=== PATIENT | female | born 1950 | race Caucasian/White ===

== ENCOUNTER → 2024-02-18 | Outpatient (CLI) | payer MEDICARE, BC ==
[2024-02-18 14:54] VITALS: BP 134/87; PULSE 76; RESP 16; TEMP 98.3
--- NOTE | 2024-02-18 16:30 | P.SLEEP ---
History of Present Illness H&P Date: 02/18/24 This is a 73-year-old female patient was referred to me with problems with chronic insomnia. The patient has had insomnia during her teenager years as her parents went to through a divorce. Subsequently, her condition improved and later on in her mid 40s, as the patient was taking care of her mother with history of melanoma, the patient started developing insomnia and advanced apnea is ongoing for the past 21 years. The patient is unable to sleep more than 3 hours. She goes to bed at around 11 PM and she averages around 2-1/2 to 3 hours at best and she gets out of bed at around 5:00 in the morning. She feels fatigued and tired during the day. Nevertheless, her functionality has been pr eserved. She has undergone a polysomnography many years back through [facility] facility. The patient was given a diagnosis of obstructive sleep apnea. She was given a CPAP machine which she was unable to tolerate and she ended up putting the treatment. She is still snoring. She denies waking up choking or gasping for air. No grinding of the teeth. No restlessness in lower extremitie s. No nighttime chest pain or shortness of breath or palpitations. She has chronic headache due to rheumatoid arthritis. She was morbidly obese and she has undergone 2 separate bariatric surgeries including gastric bypass and she has lost considerable mount of weight and current weight is down to 130. The patient has also history of pernicious anemia. No reports history of iron deficiency. No restlessness in her lower extremities bilaterally. Based on her ongoing insomnia, the patient was placed on a combination of treatment including Seroquel 100 mg at bedtime, Ambien 5 mg at bedtime and doxepin 50 mg at bedtime. Those medication combination has helped, nevertheless, the improvement was not considerable. She is also taking melatonin 3 mg tablet a total of 9 mg at bedtime. In regards to her pain, she has been taking [place] for pain control at a dose of 10/325. No history of head trauma. Notes of substance abuse. Notes of alcoholism. She is reporting a history of A-fib that occurred on 1 occasion and during the same time the patient was found to have some ROBOTIC TECHNICIAN bleed and based on that the patient is not on any anticoagulants. The patient did not require any neurosurgical intervention. No recurrent stroke. No psychiatric history of anxiety or depression. No bipolar disorder. No PTSD. She is currently living alone and her current [place] score is 4. Review of Systems Constitutional: Reports fatigue, Reports weight loss Eyes: denies as per HPI, denies blurred vision, denies bulging eye, denies dec reased vision, denies diplopia, denies discharge, denies dry eye, denies irritation, denies itching, denies pain, denies photophobia, denies loss of peripheral vision, denies loss of vision, denies tunnel vision/blind spots Ears: deny: decreased hearing, ear discharge, earache, tinnitus Ears, nose, mouth and throat: Reports as per HPI Cardiovascular: Reports as per HPI Respiratory: Reports snoring Gastrointestinal: Reports as per HPI Genitourinary: Reports as per HPI Menstruation: Reports as per HPI Musculoskeletal: Reports limitation of motion, Reports low back pain, Reports morning stiffness, Reports neck pain, Reports neck stiffness Musculoskeletal: absent: ankle pain, ankle stiffness, ankle swelling, as per HPI, elbow pain, elbow stiffness, elbow swelling, foot pain, foot stiffness, foot swelling, hand pain, hand stiffness, hand swelling, hip pain, hip stiffness, hip swelling, knee pain, knee stiffness, knee swelling, shoulder pain, shoulder stiffness, shoulder swelling, wrist pain, wrist stiffness, wrist swelling Integumentary: Reports as per HPI Neurological: Reports as per HPI Psychiatric: Reports as per HPI, Reports sleep disturbances Endocrine: Reports as per HPI, Reports fatigue Hematologic/Lymphatic: Reports as per HPI Allergic/Immunologic: Reports as per HPI Past Medical History Past Medical History: GERD/Reflux Additional Past Medical History / Comment(s): Arthritis (3 types), Pernicious anemia, folic acid deficiency, insomnia, difficulty maintaining sleep, sleep apnea - not using pap att, functional heart murmur since childhood (?8th grade), brain bleeds (2 - left ?temporal), currently has bruising type area - right forearm - unexplained, History of Any Multi-Drug Resistant Organisms: None Reported Additional Past Surgical History / Comment(s): 5 knee surgeries with bilateral knee replacement X 1, stomach stapled X 3, uterine tubes removed - cystic. Past Psychological History: No Psychological Hx Reported Smoking Status: Former smoker Past Alcohol Use History: Occasional Past Drug Use History: None Reported - Past Family History Father Additional Family Medical History / Comment(s): Heart problems (unknown type), brother with epilepsy, mom and 2 brothers with HTN Physical Exam Vitals: Vital Signs Temp Pulse Resp BP Pulse Ox 02/18/24 14:54 98.3 F 76 16 134/87 98 Intake and Output 02/18/24 02/18/24 02/18/24 06:59 14:59 22:59 Other: Weight 66.735 kg The patient appeared well nourished and normally developed. Vital signs as documented. Head exam is unremarkable. No scleral icterus or corneal arcus noted. Neck is without jugular venous distension, thyromegaly, or carotid bruits. Carotid upstrokes are brisk bilaterally. Lungs are clear to auscultation and percussion. Cardiac exam reveals the PMI to be normally sized and situated. Rhythm is regular. First and second heart sounds normal. No murmurs, rubs or gallops. Abdominal exam reveals normal bowel sounds, no masses, no organomegaly and no aortic enlargement. Extremities are nonedematous and both femoral and pedal pulses are normal. Examination of the skin revealed no evidence of significant rashes, suspicious appearing nevi or other concerning lesions. Neurologically, the patient is awake and alert and the patient does not have any focal neurological deficit. Cranial nerves are essentially intact. Assessment and Plan Plan: Chronic insomnia The patient has long history of chronic insomnia since her teenager years. After doing well for quite some time, her symptoms of insomnia progressively got worse over the past 20 years and the patient has been having very poor sleep jair lity, averaging less than 4 hours of sleep for the past 20 years at least. There is no clear understanding for causes of insomnia. The patient does not have any underlying psychiatric history of depression or PTSD or bipolar disorder. In addition, there is no other major comorbidities other than a chronic pain and rheumatoid arthritis that can essentially contribute to her insomnia. She has undergone bariatric surgery x 2 and she has developed some electrolyte imbalances admitted on/vitamin deficiencies and she has been replaced adequately. Currently she is weighing 140 pounds and her body mass index is at 26.2. Extremely high likely for this patient to have obstructive sleep apnea. No symptoms of restlessness in her lower extremities. Rheumatoid arthritis Morbid obesity with previous bariatric surgery Pernicious anemia Chronic pain Osteoarthritis Anxiety Plan I spent at least 30 minutes with the patient explaining to her the principles of good sleep hygiene measures. We also discussed cognitive behavioral therapy including stimulus control and sleep restriction and the patient is aware of those principles and she is already implementing them in life. I was unable to identify any other comorbidities that can be regulated to improve her sleep quality. In terms of medications, the patient has been adequate treated with a combination of treatment including doxepin 50 mg, melatonin 9 mg, Seroquel 100 mg and Ambien 5 mg at bedtime. Nevertheless, she still considers that her sleeping number of hours are limited and they are less than 4 hours. I suggest we increase the Ambien dose up to 10 mg and increase the Seroquel dose up to 200 mg and monitoring her sleep hours and quality. It would be of value to maintain sleep diary during this time. As mentioned, the possibility of obstructive sleep apnea still very low. However, doing a polysomnography at a later stage may be also of value once the patient is able to generate at least started 3 to 4 hours of sleep. Implement good sleep hygiene measures. Will continue to follow. The patient will see back in 2 weeks time to evaluate drug side effects/ response. Sleep Note - Sleep Data ESS Total: 4 - Sleep Note Sleep Note: Temperature: 98.3 F Pulse Rate: 76 Respiratory Rate: 16 Blood Pressure: 134/87 SpO2: 98 Height: 5 ft 2.7 in Weight: 66.735 kg BMI: Neck Circumference: 13
== END ==
LOC: 3 N SLEEP 13:49
PROVIDERS: ATTEND Internal Medicine Critical Care Medicine
CPT/HCPCS: 99202

== ENCOUNTER 2024-11-12 16:41 | Inpatient (IN) | payer MEDICARE, BC ==
[2024-11-12] MEDS: SODIUM CHLORIDE 0.9% 1,000 ML IV ONE (17:36)
--- NOTE | 2024-11-12 17:43 | ED ---
General Adult HPI - General Chief complaint: Dizziness Stated complaint: Dizziness Time Seen by Provider: 11/12/24 16:56 Source: patient, EMS, RN notes reviewed, old records reviewed Mode of arrival: EMS Limitations: no limitations - History of Present Illness Initial comments: 74-year-old female presenting with ongoing issue with dizziness and fatigue. Patient states she had a fall and this resulted in a head injury. Patient was seen at outside hospital had CT scan which was reported by the patient as negative. Patient denies chest pain or dyspnea. Denies nausea. Denies any urinary symptoms. She states she has a previous history of anemia. - Related Data Home Medications Medication Instructions Recorded Confirmed Acetaminophen [Tylenol] 975 mg PO Q8H PRN 11/12/24 11/12/24 Ascorbic Acid [Vitamin C] 500 mg PO DAILY 11/12/24 11/12/24 Cyanocobalamin (Vitamin B-12) 1,000 mcg PO DAILY 11/12/24 11/12/24 [Vitamin B-12] Ergocalciferol (Vitamin D2) 1,250 mcg PO TUFR 11/12/24 11/12/24 [Drisdol (GEQ) 1,250 MCG (50,000 IU)] Ferrous Sulfate [Feosol] 325 mg PO DAILY 11/12/24 11/12/24 Folic Acid 1 mg PO DAILY 11/12/24 11/12/24 HYDROcodone/APAP 10-325MG [[place] 1 tab PO QID 11/12/24 11/12/24 10-325] Hydroxychloroquine Sulfate 200 mg PO DAILY 11/12/24 11/12/24 [Plaquenil] Lidocaine-Prilocaine Cream [[place]mla 1 applic TOPICAL TID PRN 11/12/24 11/12/24 Cream 2.5%/2.5%] Melatonin 9 mg PO HS 11/12/24 11/12/24 Multivitamins, Thera [Multivitamin 1 tab PO DAILY 11/12/24 11/12/24 (formulary)] Pantoprazole [Protonix] 40 mg PO DAILY 11/12/24 11/12/24 QUEtiapine [SEROquel] 200 mg PO HS 11/12/24 11/12/24 Zolpidem [Ambien] 5 mg PO HS PRN 07/24/25 07/24/25 oxyCODONE HCL [oxyCODONE HCL (IR)] 5 mg PO TID PRN 11/12/24 11/12/24 Allergies Allergy/AdvReac Type Severity Reaction Status Date / Time No Known Allergies Allergy Verified 11/12/24 21:09 Review of Systems ROS Statement: Those systems with pertinent positive or pertinent negative responses have been documented in the HPI. ROS Other: All systems not noted in ROS Statement are negative. Past Medical History Past Medical History: GERD/Reflux Additional Past Medical History / Comment(s): Arthritis (3 types), Pernicious anemia, folic acid deficiency, insomnia, difficulty maintaining sleep, sleep apnea - not using pap att, functional heart murmur since childhood (?8th grade), brain bleeds (2 - left ?temporal), currently has bruising type area - right forearm - unexplained, History of Any Multi-Drug Resistant Organisms: None Reported Additional Past Surgical History / Comment(s): 5 knee surgeries with bilateral knee replacement X 1, stomach stapled X 3, uterine tubes removed - cystic. Past Psychological History: No Psychological Hx Reported Smoking Status: Former smoker Past Alcohol Use History: Occasional Past Drug Use History: None Reported - Past Family History Father Additional Family Medical History / Comment(s): Heart problems (unknown type), brother with epilepsy, mom and 2 brothers with HTN General Exam Limitations: no limitations General appearance: alert, in no apparent distress Head exam: Present: other (Ecchymosis right forehead and bilateral raccoon eyes) Eye exam: Present: PERRL, EOMI ENT exam: Present: mucous membranes dry Neck exam: Present: normal inspection. Absent: tenderness Respiratory exam: Present: normal lung sounds bilaterally. Absent: respiratory distress Cardiovascular Exam: Present: regular rate, normal rhythm GI/Abdominal exam: Present: soft. Absent: distended, tenderness Extremities exam: Present: normal inspection, normal capillary refill Neurological exam: Present: alert, oriented X3, CN II-XII intact. Absent: motor sensory deficit Psychiatric exam: Present: normal affect, normal mood Skin exam: Present: warm, dry, intact Course Vital Signs 11/12/24 11/12/24 11/12/24 16:49 16:54 20:53 Temperature 99.4 F Pulse Rate 74 71 Respiratory 18 18 Rate Blood Pressure 120/76 133/92 O2 Sat by Pulse 99 98 Oximetry Medical Decision Making - Medical Decision Making Was pt. sent in by a medical professional or institution (FRANCHESKA Andrade, KINESIOLOGIST, urgent care, hospital, or half-way...) When possible be specific @ -No Did you speak to anyone other than the patient for history (EMS, parent, family, police, friend...)? What history was obtained from this source @ -No Did you review nursing and triage notes (agree or disagree)? Why? @ -I reviewed and agree with nursing and triage notes Were old charts reviewed (outside hosp., previous admission, EMS record, old EKG, old radiological studies, urgent care reports/EKG's, half-way records)? Report findings @ -No old charts were reviewed Differential Weakness: Hypoglycemia, shock, sepsis, hyponatremia, anemia, infection, WI, ETOH, adverse medicine reaction, overdose, stroke, this is not meant to be an all-inclusive list. EKG interpreted by me (3pts min.). @Sinus rhythm with a first-degree AV block rate of 72, NM interval 253, QRS duration 78, QTc [address] segment elevation. X-rays interpreted by me (1pt min.). @ -Chest x-ray negative for acute cardiopulmonary findings CT interpreted by me (1pt min.). @ -None done U/S interpreted by me (1pt. min.). @ -None done What testing was considered but not performed or refused? (CT, X-rays, U/S, labs)? Why? @ -None What meds were considered but not given or refused? Why? @ -None Did you discuss the management of the patient with other professionals (professionals i.e. FRANCHESKA Andrade, KINESIOLOGIST, lab, RT, psych nurse, certified social workers in health care, remedial teacher, teacher, school services officer, counseling case manager)? Give summary @ -No Was smoking cessation discussed for >3mins.? @ -No Was critical care preformed (if so, how long)? @ -No Were there social determinants of health that impacted care today? How? (Homelessness, low income, unemployed, alcoholism, drug addiction, transportation, low edu. Level, literacy, decrease access to med. care, shelter, rehab)? @ -No Was there de-escalation of care discussed even if they declined (Discuss DNR or withdrawal of care, Hospice)? DNR status @ -No What co-morbidities impacted this encounter? (DM, HTN, Smoking, COPD, CAD, Cancer, CVA, ARF, Chemo, Hep., AIDS, mental health diagnosis, sleep apnea, morbid obesity)? @ -[Anemia Was patient admitted / discharged? Hospital course, mention meds given and route, prescriptions, significant lab abnormalities, going to OR and other [facility] info. @75-year-old female presenting with weakness, fatigue, multiple falls. Patient has stable vitals. She is in sinus rhythm. She has no chest pain or abdominal pain. No urinary symptoms. Workup reveals normal CBC, normal CMP, chest x-ray is clear. She does have urinalysis. Family is concerned about the patient's ability to live alone. Patient admitted for a UTI, possible placement Undiagnosed new problem with uncertain prognosis? @ -No Drug Therapy requiring intensive monitoring for toxicity (Heparin, Nitro, Insulin, Cardizem)? @ -No Were any procedures done? @ -No Diagnosis/symptom? @UTI, weakness, multiple falls Acute, or Chronic, or Acute on Chronic? @Acute Uncomplicated (without systemic symptoms) or Complicated (systemic symptoms)? @ -Default Side effects of treatment? @ -No Exacerbation, Progression, or Severe Exacerbation? @ -No Poses a threat to life or bodily function? How? (Chest pain, [place], WI, pneumonia, PE, COPD, DKA, ARF, appy, cholecystitis, CVA, Diverticulitis, Homicidal, Suicidal, threat to staff... and all critical care pts) @Yes, fall risk in the elderly, gait instability - Lab Data Result diagrams: 11/12/24 17:30 11/12/24 17:33 Lab Results 11/12/24 11/12/24 11/12/24 Range/Units 17:14 17:30 17:30 WBC 5.32 (4.50-10.00) 10*3/uL RBC 4.15 (4.10-5.20) 10*6/uL Hgb 12.1 (12.0-15.0) g/dL Hct 36.6 L (37.2-46.3) % MCV 88.2 (80.0-97.0) fL MCH 29.2 (27.0-32.0) pg MCHC 33.1 (32.0-37.0) g/dL Plt Count 238 (140-440) 10*3/uL MPV 9.3 L (9.5-12.2) fL Immature Gran % (Auto) 0.6 % Neutrophils % 65.5 % Lymphocytes % 24.8 % Monocytes % 6.6 % Eosinophils % 1.9 % Basophils % 0.6 % Immature Gran # 0.03 (0.00-0.04) 10*3/uL Neutrophils # 3.49 (1.80-7.70) 10*3/uL Lymphocytes # 1.32 (0.90-5.00) 10*3/uL Monocytes # 0.35 (0.20-1.00) 10*3/uL Eosinophils # 0.10 (0.04-0.35) 10*3/uL Basophils # 0.03 (0.00-0.10) 10*3/uL PT 11.3 (10.0-12.5) sec INR 1.0 (<1.2) APTT 25.1 (22.0-30.0) sec Sodium (137-145) mmol/L Potassium (3.5-5.1) mmol/L Chloride (98-107) mmol/L Carbon Dioxide (22-30) mmol/L Anion Gap mmol/L BUN (7-17) mg/dL Creatinine (0.52-1.04) mg/dL Est GFR (CKD-EPI)AfAm (>60 ml/min/1.73 sqM) Est GFR (CKD-EPI)NonAf (>60 ml/min/1.73 sqM) Glucose (74-99) mg/dL Plasma Lactic Acid Dionicio (0.7-2.0) mmol/L Calcium (8.4-10.2) mg/dL Magnesium (1.6-2.3) mg/dL Total Bilirubin (0.2-1.3) mg/dL AST (14-36) U/L ALT (4-34) U/L Alkaline Phosphatase (38-126) U/L Troponin I (0.000-0.034) ng/mL Total Protein (6.3-8.2) g/dL Albumin (3.5-5.0) g/dL Urine Color Light Yellow Urine Appearance Clear (Clear) Urine pH 5.5 (5.0-8.0) Ur Specific [place] 1.019 (1.001-1.035) Urine Protein Negative (Negative) Urine Glucose (UA) Negative (Negative) Urine Ketones Negative (Negative) Urine Blood Negative (Negative) Urine Nitrite Positive H (Negative) Urine Bilirubin Negative (Negative) Urine Urobilinogen <2.0 (<2.0) mg/dL Ur Leukocyte Esterase Small H (Negative) Urine RBC <1 (0-5) /hpf Urine WBC 29 H (0-5) /hpf Ur Squamous Epith Cells 1 (0-4) /hpf Urine Bacteria Moderate H (None) /hpf Urine Mucus Few H (None) /hpf 11/12/24 11/12/24 11/12/24 Range/Units 17:30 17:30 17:33 WBC (4.50-10.00) 10*3/uL RBC (4.10-5.20) 10*6/uL Hgb (12.0-15.0) g/dL Hct (37.2-46.3) % MCV (80.0-97.0) fL MCH (27.0-32.0) pg MCHC (32.0-37.0) g/dL Plt Count (140-440) 10*3/uL MPV (9.5-12.2) fL Immature Gran % (Auto) % Neutrophils % % Lymphocytes % % Monocytes % % Eosinophils % % Basophils % % Immature Gran # (0.00-0.04) 10*3/uL Neutrophils # (1.80-7.70) 10*3/uL Lymphocytes # (0.90-5.00) 10*3/uL Monocytes # (0.20-1.00) 10*3/uL Eosinophils # (0.04-0.35) 10*3/uL Basophils # (0.00-0.10) 10*3/uL PT (10.0-12.5) sec INR (<1.2) APTT (22.0-30.0) sec Sodium 139 (137-145) mmol/L Potassium 4.2 (3.5-5.1) mmol/L Chloride 110 H (98-107) mmol/L Carbon Dioxide 22 (22-30) mmol/L Anion Gap 7 mmol/L BUN 14 (7-17) mg/dL Creatinine 0.48 L (0.52-1.04) mg/dL Est GFR (CKD-EPI)AfAm >90 (>60 ml/min/1.73 sqM) Est GFR (CKD-EPI)NonAf >90 (>60 ml/min/1.73 sqM) Glucose 85 (74-99) mg/dL Plasma Lactic Acid Dionicio 1.0 (0.7-2.0) mmol/L Calcium 8.3 L (8.4-10.2) mg/dL Magnesium 2.0 (1.6-2.3) mg/dL Total Bilirubin 0.4 (0.2-1.3) mg/dL AST 24 (14-36) U/L ALT 13 (4-34) U/L Alkaline Phosphatase 116 (38-126) U/L Troponin I <0.012 (0.000-0.034) ng/mL Total Protein 5.9 L (6.3-8.2) g/dL Albumin 3.3 L (3.5-5.0) g/dL Urine Color Urine Appearance (Clear) Urine pH (5.0-8.0) Ur Specific [place] (1.001-1.035) Urine Protein (Negative) Urine Glucose (UA) (Negative) Urine Ketones (Negative) Urine Blood (Negative) Urine Nitrite (Negative) Urine Bilirubin (Negative) Urine Urobilinogen (<2.0) mg/dL Ur Leukocyte Esterase (Negative) Urine RBC (0-5) /hpf Urine WBC (0-5) /hpf Ur Squamous Epith Cells (0-4) /hpf Urine Bacteria (None) /hpf Urine Mucus (None) /hpf Disposition Clinical Impression: Dehydration, UTI (urinary tract infection), Weakness Disposition: ADMITTED IP TO THIS HOSP Condition: Stable Is patient prescribed a controlled substance at d/c from ED?: No Referrals: None,Stated [Primary Care Provider] - 1-2 days Time of Disposition: 20:20
[2024-11-12 17:52] LABS: Basophils # (A) 0.03 10*3/uL (0.00-0.10); Basophils % (A) 0.6 %; Eosinophils # (A) 0.10 10*3/uL (0.04-0.35); Eosinophils % (A) 1.9 %; HCT 36.6 % (37.2-46.3); HGB 12.1 g/dL (12.0-15.0); Lymphocytes # (A) 1.32 10*3/uL (0.90-5.00); Lymphocytes % (A) 24.8 %; MCH 29.2 pg (27.0-32.0); MCHC 33.1 g/dL (32.0-37.0); MCV 88.2 fL (80.0-97.0); Monocytes # (A) 0.35 10*3/uL (0.20-1.00); Monocytes % (A) 6.6 %; Neutrophils # (A) 3.49 10*3/uL (1.80-7.70); Neutrophils % (A) 65.5 %; Platelet Count 238 10*3/uL (140-440); RBC 4.15 10*6/uL (4.10-5.20); RDW 13.9 % (11.5-14.5); WBC 5.32 10*3/uL (4.50-10.00)
[2024-11-12 18:05] LABS: ALT 13 U/L (4-34); AST 24 U/L (14-36); African American GFR (CKD) >90 (>60 ml/min/1.73 sqM); Albumin 3.3 g/dL (3.5-5.0); Alkaline Phosphatase 116 U/L (38-126); Anion Gap 7 mmol/L; Blood Urea Nitrogen 14 mg/dL (7-17); Calcium 8.3 mg/dL (8.4-10.2); Carbon Dioxide 22 mmol/L (22-30); Chloride 110 mmol/L (98-107); Glucose 85 mg/dL (74-99); Magnesium 2.0 mg/dL (1.6-2.3); Non-African American GFR(CKD) >90 (>60 ml/min/1.73 sqM); Potassium 4.2 mmol/L (3.5-5.1); Sodium 139 mmol/L (137-145); Total Protein 5.9 g/dL (6.3-8.2)
--- NOTE | 2024-11-12 18:06 | XR ---
EXAMINATION TYPE: XR chest 2V DATE OF EXAM: 11/12/2024 5:54 PM COMPARISON: None. CLINICAL INDICATION: Female, 74 years old with history of Weakness; [facility] TECHNIQUE: XR chest 2V Frontal and lateral views of the chest. FINDINGS: Lungs/Pleura: There is no evidence of pleural effusion, focal consolidation, or pneumothorax. Pulmonary vascularity: Unremarkable. Heart/mediastinum: Cardiomediastinal silhouette is unremarkable. Musculoskeletal: No acute osseous pathology. Other findings: None IMPRESSION: No acute cardiopulmonary disease/process. [facility], , 11/12/2024 6:04 PM
[2024-11-12 18:10] LABS: INR 1.0 (<1.2); Partial Thromboplastin Time 25.1 sec (22.0-30.0); Prothrombin Time 11.3 sec (10.0-12.5)
[2024-11-12 20:23] LABS: Bacteria,Urine Moderate /hpf; Bilirubin,Urine Negative (Negative); Blood,Urine Negative (Negative); Color,Urine Light Yellow; Glucose,Urine (UA) Negative (Negative); Ketones,Urine Negative (Negative); Leukocyte Esterase,Urine Small (Negative); Mucus,Urine Few /hpf; Nitrite,Urine Positive (Negative); PH, Urine 5.5 (5.0-8.0); Protein,Urine Negative (Negative); RBC,Urine <1 /hpf (0-5); Specific Gravity,Urine 1.019 (1.001-1.035); Squamous Epithelial Cell,Urine 1 /hpf (0-4); Urobilinogen,Urine <2.0 mg/dL (<2.0); WBC,Urine 29 /hpf (0-5)
[2024-11-12] MEDS: cefTRIAXone IN SWFI 1,000 MG/10 ML SYRINGE IVP STA (21:27)
[2024-11-12] MEDS: SODIUM CHLORIDE 0.9% 1,000 ML IV SCH (21:28)
[2024-11-12] MEDS ORDERED: NALOXONE 0.4 MG/ML 1 ML VIAL IV PRN (21:49)
[2024-11-12] MEDS: ACETAMINOPHEN TAB 325 MG TAB PO PRN (22:31)
[2024-11-13] MEDS ORDERED: ACETAMINOPHEN TAB 325 MG TAB PO PRN (01:27)
--- NOTE | 2024-11-13 01:37 | P.HPIM ---
History of Present Illness H&P Date: 11/12/24 Chief Complaint: "Just been weak, shaky, and I had a fall on Saturday and split my head open." 74 year old female with arthritis , anemia , celiac disease Patient presents after experiencing weakness and shakiness that led to a fall on Saturday resulting in a head laceration. Patient reports feeling increasingly weak lately and describes being "really clumsy." Patient has a history of 5 knee surgeries and rheumatoid arthritis, which sometimes contributes to falls. Patient reports poor appetite and appears cachectic with significant muscle wasting. Patient was found to have a urinary tract infection during this visit. Patient lives alone but uses both a walker and cane for ambulation and reports having adequate support from multiple people who check on them. Patient lives alone but reports having multiple people who check on them and feels safe. Patient uses both a walker and cane for ambulation at home. Patient has a history of smoking years ago but reports not smoking very much. Patient reports having approximately one alcoholic drink per month. Patient denies current drug use. PMHx Rheumatoid arthritis with history of 5 knee surgeries Pernicious anemia Celiac disease Atrial fibrillation - hospitalized in cardiac intensive care 2 years ago History of subcutaneous bleeding episodes 2 years ago, attributed to arthritis medication which was subsequently discontinued Patient denies diabetes, hypertension, heart attacks, congestive heart failure, or history of blood clots PSHx Patient reports having had 5 knee surgeries. meds Patient requests sleep medications and pain medications. Review of systems All systems reviewed with pertinent positive negatives as per HPI Constitutional: Weakness, poor appetite, significant weight loss and muscle wasting Genitourinary: Urinary tract infection with positive nitrites, frequent urination Neurological: Feeling weak and shaky, clumsiness Musculoskeletal: History of falls, uses walker and cane for ambulation Cardiovascular: History of atrial fibrillation Gastrointestinal: Poor appetite on exam General: Patient appears cachectic with significant weight loss and muscle wasting Cardiovascular: Normal S1, S2, regular rate and rhythm, no murmurs. Radial pulses equal bilaterally Pulmonary: Lungs clear to auscultation bilaterally, no wheezing Abdomen: Soft and lax, no tenderness Extremities: No leg edema bilaterally, feet are cold Neurological: Strength in upper extremities 3/5, lower extremities 3+/5 HEENT: Head shows area of trauma and ecchymosis over forehead with small cut Neck: Supple, no masses, or JVD No carotid bruits No thyromegaly Psychiatric: Alert and oriented to person, place and time Appropriate affect fair judgement Past Medical History Past Medical History: GERD/Reflux Additional Past Medical History / Comment(s): Arthritis (3 types), Pernicious anemia, folic acid deficiency, insomnia, difficulty maintaining sleep, sleep apnea - not using cpap, functional heart murmur since childhood (?8th grade), brain bleeds (2 - left ?temporal), currently has bruising type area - right forearm - unexplained, patient reports afib 2 years ago, fall11/09/24, patient states celiac History of Any Multi-Drug Resistant Organisms: None Reported Additional Past Surgical History / Comment(s): 5 knee surgeries with bilateral knee replacement X 1, stomach stapled X 3, uterine tubes removed - cystic. Past Anesthesia/Blood Transfusion Reactions: No Reported Reaction Past Psychological History: No Psychological Hx Reported Smoking Status: Former smoker Past Alcohol Use History: Rare Additional Past Alcohol Use History / Comment(s): one glass a wine a month Past Drug Use History: None Reported - Past Family History Father Additional Family Medical History / Comment(s): Heart problems (unknown type), brother with epilepsy, mom and 2 brothers with HTN Medications and Allergies Home Medications Medication Instructions Recorded Confirmed Type Acetaminophen [Tylenol] 975 mg PO Q8H PRN 11/12/24 11/12/24 History Ascorbic Acid [Vitamin C] 500 mg PO DAILY 11/12/24 11/12/24 History Cyanocobalamin (Vitamin B-12) 1,000 mcg PO DAILY 11/12/24 11/12/24 History [Vitamin B-12] Ergocalciferol (Vitamin D2) 1,250 mcg PO TUFR 11/12/24 11/12/24 History [Drisdol (GEQ) 1,250 MCG (50,000 IU)] Ferrous Sulfate [Feosol] 325 mg PO DAILY 11/12/24 11/12/24 History Folic Acid 1 mg PO DAILY 11/12/24 11/12/24 History HYDROcodone/APAP 10-325MG [[place] 1 tab PO QID 11/12/24 11/12/24 History 10-325] Hydroxychloroquine Sulfate 200 mg PO DAILY 11/12/24 11/12/24 History [Plaquenil] Lidocaine-Prilocaine Cream [[place] 1 applic TOPICAL TID PRN 11/12/24 11/12/24 History Cream 2.5%/2.5%] Melatonin 9 mg PO HS 11/12/24 11/12/24 History Multivitamins, Thera [Multivitamin 1 tab PO DAILY 11/12/24 11/12/24 History (formulary)] Pantoprazole [Protonix] 40 mg PO DAILY 11/12/24 11/12/24 History QUEtiapine [SEROquel] 200 mg PO HS 11/12/24 11/12/24 History Zolpidem [Ambien] 5 mg PO HS PRN 11/12/24 11/12/24 History oxyCODONE HCL [oxyCODONE HCL (IR)] 5 mg PO TID PRN 11/12/24 11/12/24 History Allergies Allergy/AdvReac Type Severity Reaction Status Date / Time No Known Allergies Allergy Verified 11/12/24 21:09 Physical Exam Vitals: Vital Signs Temp Pulse Resp BP Pulse Ox 11/12/24 23:00 80 18 137/80 96 11/12/24 20:53 71 18 133/92 98 11/12/24 16:54 120/76 11/12/24 16:49 99.4 F 74 18 99 Intake and Output 11/12/24 11/12/24 11/13/24 14:59 22:59 06:59 Other: Weight 54.431 kg 54.431 kg Results CBC & Chem 7: 11/12/24 17:30 11/12/24 17:33 Labs: Abnormal Lab Results - Last 24 Hours (Table) 11/12/24 11/12/24 11/12/24 Range/Units 17:14 17:30 17:33 Hct 36.6 L (37.2-46.3) % MPV 9.3 L (9.5-12.2) fL Chloride 110 H (98-107) mmol/L Creatinine 0.48 L (0.52-1.04) mg/dL Calcium 8.3 L (8.4-10.2) mg/dL Total Protein 5.9 L (6.3-8.2) g/dL Albumin 3.3 L (3.5-5.0) g/dL Urine Nitrite Positive H (Negative) Ur Leukocyte Esterase Small H (Negative) Urine WBC 29 H (0-5) /hpf Urine Bacteria Moderate H (None) /hpf Urine Mucus Few H (None) /hpf Thrombosis Risk Factor Assmnt - Choose All That Apply Any of the Below Risk Factors Present?: No Other Risk Factors: Yes Each Risk Factor Represents 2 Points: Age 61-74 years Other congenital or acquired thrombophilia - If yes, enter type in comment: No Thrombosis Risk Factor Assessment Total Risk Factor Score: 2 Thrombosis Risk Factor Assessment Level: Low Risk Assessment and Plan Assessment: Patient admitted after fall at home with weakness and urinary tract infection. 1. Acute urinary tract infection: - Urinalysis positive for nitrites with symptoms of frequent urination - Plan: Start Rocephin, follow up cultures, gentle IV fluid hydration 2. Severe protein calorie malnutrition: - Patient appears cachectic with significant weight loss and muscle wasting - Plan: Nutrition evaluation, Ensure high protein 3 times daily with meals, encourage high protein intake 3. Arthritis and frequent falls: - History of rheumatoid arthritis and recurrent falls - Plan: Fall precautions, PT/OT evaluation, executive secretary social welfare consultation for possible placement 4. DVT prophylaxis: - Plan: heparin 5000 units sc tid 5. GI prophylaxis: - Plan: Pepcid 20 mg PO daily 6. Head trauma from fall: had an accidental fall few days ago fall precautions PT/OT Urinalysis: Positive nitrites consistent with urinary tract infection Basic metabolic panel: Sodium 139, potassium 4.2, BUN 14, creatinine 0.4 - renal function unremarkable Complete blood count: White blood cell count 5 (unremarkable), hemoglobin 12 (unremarkable) Cardiac markers: Troponins negative CT scan of brain: No acute intracranial pathology
[2024-11-13] MEDS: HYDROcodone/APAP 10-325MG 1 EACH TAB PO PRN (01:48)
[2024-11-13] MEDS: ZOLPIDEM 5 MG TAB PO PRN (01:48)
[2024-11-13] MEDS: HEPARIN SODIUM,PORCINE 5,000 UNIT/ML 1 ML VIAL SQ SCH (08:24)
[2024-11-13] MEDS: FAMOTIDINE 20 MG TAB PO SCH (08:24)
[2024-11-13] MEDS: HYDROXYCHLOROQUINE SULFATE 200 MG TAB PO SCH (08:24)
--- NOTE | 2024-11-13 11:17 | P.PN ---
Subjective Progress Note Date: 11/13/24 74 year old F with PMH RA, celiac disease, pernicious anemia presents to the ED after feeling dizzy and losing her footing on the stairs. She reports progressive weight loss over the past 2 years due to poor appetite. Previously has C-scope (but reports being overdo for one - follows GI at [facility]) showing pre cancerous polpys. Reports positional lightheadedness. Reports had a CT head done at outside hospital which was patient reported negative. In the ED she underwent extensive evaluation. BP 120/76, HR 74, T 99.4F, RR 18, 99% on RA. Labs significant for Hct 36.6, Cl 110, Cr 0.48, Ca 8.3, Mag 2, Lactic acid 1, Trop < 0.012, alb 3.3. UA + nitrite. CXR neg. EKG NSR with first degree AV block. Started on Rocephin and admitted for further workup and management. 11/13 Patient was seen and examined. Reports pain "all over". Pain is 10/10 severity. No new labs done this morning. General: no distress, appears at stated age Derm: warm, dry Head: atraumatic, normocephalic, symmetric, bruising over the forehead Eyes: EOMI Mouth: no lip lesion, mucus membranes moist Cardiovascular: S1 S2 reg. No murmur. Lungs: Decreased BS bilaterally, no accessory muscle use Ext: no gross muscle atrophy, no edema, no contractures Neuro: No FND Psych: AO x 3 Based on my assessment of this patient, this patient meets a high complexity level of care. UTI: Continue Rocephin 2g IV QD. Follow UCx. Positional lightheadedness weight fall and head trauma: Outside hospital CT head negative per patient. Obtain Orthostats + Echo. Telemetry monitoring for one day. Fall precautions. PT and OT consulted. Patient agreeable for SNF. Protein calorie malnutrition with unintentional weight loss: Patient reported C- scope 3 years ago showing preCA polyps. Advised repeat C-scope especially given recent weight loss and risk factors such as celiac disease + pernicious anemia. Ensure TID. RA: Hydroxychloroquine 200 mg PO QD. GERD: Pepcid 20 mg PO QD + Protonix 40 mg PO QD. History of A-Fib CODE STATUS: FULL CODE DVT Prophylaxis: Hep SQ GI Prophylaxis: Protonix + Pepcid Designated medical POA if patient is not able to make medical decisions for themselves: I have reviewed the following internet consultant notes: I have reviewed the results of the following tests: I have ordered the following tests: Orthostats, Echo. I have discussed the care of this patient with the following independent historian: I have independently interpreted the following test below: I have discussed the management of this patient with the following physician: Objective - Vital Signs Vital signs: Vital Signs Temp 97.9 F 11/13/24 07:40 Pulse 72 11/13/24 07:40 Resp 15 11/13/24 07:40 BP 109/69 11/13/24 07:40 Pulse Ox 100 11/13/24 07:40 FiO2 Intake & Output 11/12/24 11/13/24 11/13/24 18:59 06:59 18:59 Intake Total 240 Balance 240 Weight 54.431 kg 54.431 kg Intake: Oral 240 Other: # Voids 2 1 - Labs CBC & Chem 7: 11/12/24 17:30 11/12/24 17:33 Labs: Abnormal Lab Results - Last 24 Hours (Table) 11/12/24 11/12/24 11/12/24 Range/Units 17:14 17:30 17:33 Hct 36.6 L (37.2-46.3) % MPV 9.3 L (9.5-12.2) fL Chloride 110 H (98-107) mmol/L Creatinine 0.48 L (0.52-1.04) mg/dL Calcium 8.3 L (8.4-10.2) mg/dL Total Protein 5.9 L (6.3-8.2) g/dL Albumin 3.3 L (3.5-5.0) g/dL Urine Nitrite Positive H (Negative) Ur Leukocyte Esterase Small H (Negative) Urine WBC 29 H (0-5) /hpf Urine Bacteria Moderate H (None) /hpf Urine Mucus Few H (None) /hpf
[2024-11-13] MEDS: ONDANSETRON 4 MG/2 ML VIAL IVP PRN (13:40)
[2024-11-13] MEDS: MORPHINE SULFATE 4 MG/ML SYRINGE IVP PRN (13:41)
--- NOTE | 2024-11-13 21:10 | CA ---
Transthoracic Echo Report Name: Ludy Murray Age: 74 Gender: F : 1950 Exam Date: 11/13/2024 14:54 Exam Location: [facility] Ht (in): 63 Wt (lb): 120 Ordering Physician: Korey Wills MD Attending/Referring Phys: Ultrasound Specialist Avis Antoine RDCS Procedure CPT: Indications: lightheadedness Cardiac Hx: Technical Quality: Poor Contrast 1: Total Dose (mL): Contrast 2: Total Dose (mL): MEASUREMENTS (Male / Female) Normal Values 2D ECHO LV Diastolic Diameter PLAX 3.5 cm 4.2 - 5.9 / 3.9 - 5.3 cm LV Systolic Diameter PLAX 2.8 cm IVS Diastolic Thickness 0.5 cm 0.6 - 1.0 / 0.6 - 0.9 cm LVPW Diastolic Thickness 1.1 cm 0.6 - 1.0 / 0.6 - 0.9 cm LV Relative Wall Thickness 0.4 RV Internal Dim ED PLAX 2.6 cm LVOT Diameter 1.8 cm LA Systolic Diameter LX 3.1 cm 3.0 - 4.0 / 2.7 - 3.8 cm LV Diastolic Volume MOD BP 62.2 cm??? 67 - 155 / 56 - 104 cm??? LV Systolic Volume MOD BP 27.9 cm??? 22 - 58 / 19 - 49 cm??? LV Ejection Fraction MOD BP 55.1 % >= 55 % LV Cardiac Index MOD BP 1498.5 cm???/min???m??? LV Diastolic Volume MOD 4C 60.7 cm??? LV Systolic Volume MOD 4C 27.1 cm??? LV Ejection Fraction MOD 4C 55.3 % LV Cardiac Index MOD 4C 1468.4 cm???/min???m??? LV Diastolic Length 4C 7.5 cm LV Systolic Length 4C 6.5 cm LV Diastolic Volume MOD 2C 62.1 cm??? LV Systolic Volume MOD 2C 28.0 cm??? LV Ejection Fraction MOD 2C 54.9 % LV Cardiac Index MOD 2C 1491.6 cm???/min???m??? LV Diastolic Length 2C 7.2 cm LV Systolic Length 2C 6.3 cm M-MODE Aortic Root Diameter MM 3.0 cm LA Systolic Diameter MM 1.9 cm LA Ao Ratio MM 0.6 DOPPLER AV Peak Velocity 124.4 cm/s AV Peak Gradient 6.2 mmHg LVOT Peak Velocity 104.5 cm/s LVOT Peak Gradient 4.4 mmHg AV Area Cont Eq pk 2.1 cm??? Mitral E Point Velocity 73.4 cm/s Mitral A Point Velocity 68.6 cm/s Mitral E to A Ratio 1.1 MV Deceleration Time 226.8 ms MV E' Velocity 8.2 cm/s Mitral E to MV E' Ratio 8.9 TR Peak Velocity 222.0 cm/s TR Peak Gradient 19.7 mmHg Right Ventricular Systolic Press 24.7 mmHg FINDINGS Left Ventricle Left ventricular ejection fraction is estimated at 50-55 %. Normal Left ventricular size, wall thickness, systolic function with no obvious regional wall motion abnormalities. Normal Left ventricular diastolic filling pattern. Mildly increased posterior wall thickness. Right Ventricle Normal right ventricular size. Reduced right ventricular global systolic function. Right Atrium Normal right atrial size. No right atrial thrombus or mass seen. Left Atrium Normal left atrial size. No left atrial thrombus or mass present. Mitral Valve Mitral valve thickened. No mitral stenosis. No mitral regurgitation. Aortic Valve Aortic valve not well visualized. No aortic stenosis. No aortic regurgitation. Tricuspid Valve Structurally normal tricuspid valve. Mild tricuspid regurgitation. Pulmonic Valve Pulmonic valve not well visualized. Pericardium No pericardial effusion. No pleural effusion. Aorta Normal size aortic root. proximal ascending aorta not well visualized. CONCLUSIONS LVEF 55% No obvious regional wall motion abnormality Normal RV size and systolic function No major valvular dysfunction Previewed by: Dr Jaspal Gurrola (Electronically Signed) Final Date: 13 November 2024 21:09
[2024-11-13] MEDS: MELATONIN 3 MG TABLET PO SCH (21:32)
[2024-11-14] MEDS: PANTOPRAZOLE 40 MG TABLET PO SCH (06:24)
[2024-11-14] MEDS: FOLIC ACID 1 MG TAB PO SCH (09:13)
[2024-11-14] MEDS: FERROUS SULFATE 325 MG TAB PO SCH (09:13)
--- NOTE | 2024-11-14 11:08 | P.PN ---
Subjective Progress Note Date: 11/14/24 74 year old F with PMH RA, celiac disease, pernicious anemia presents to the ED after feeling dizzy and losing her footing on the stairs. She reports progressive weight loss over the past 2 years due to poor appetite. Previously has C-scope (but reports being overdo for one - follows GI at [facility]) showing pre cancerous polpys. Reports positional lightheadedness. Reports had a CT head done at outside hospital which was patient reported negative. In the ED she underwent extensive evaluation. BP 120/76, HR 74, T 99.4F, RR 18, 99% on RA. Labs significant for Hct 36.6, Cl 110, Cr 0.48, Ca 8.3, Mag 2, Lactic acid 1, Trop < 0.012, alb 3.3. UA + nitrite. CXR neg. EKG NSR with first degree AV block. Started on Rocephin and admitted for further workup and management. 11/13 Patient was seen and examined. Reports pain "all over". Pain is 10/10 severity. No new labs done this morning. 11/14 Patient was seen and examined. Patient reports arthritic pain in all of her joints. Pain is 10/10 severity slightly relieved with Morphine. Orthostats yesterday was negative. Echo shows EF 50-55%. UCx growing GNB. Agreeable for SNF. No new labs done today. General: no distress, appears at stated age Derm: warm, dry Head: atraumatic, normocephalic, symmetric, bruising over the forehead Eyes: EOMI Mouth: no lip lesion, mucus membranes moist Cardiovascular: S1 S2 reg. No murmur. Lungs: Decreased BS bilaterally, no accessory muscle use Ext: no gross muscle atrophy, no edema, no contractures Neuro: No FND Psych: AO x 3 Based on my assessment of this patient, this patient meets a high complexity level of care. UTI: Continue Rocephin 2g IV QD. Follow UCx. RA flare: Hydroxychloroquine 200 mg PO QD. Start Prednisone 20 mg PO QD and taper. [place] 10 QID PRN. Morphine 4 mg IV Q6H PRN. Positional lightheadedness weight fall and head trauma: Outside hospital CT head negative per patient. Orthostats negative. Echo as above. Telemetry monitoring for one day. Fall precautions. PT and OT consulted. Patient agreeable for SNF. Protein calorie malnutrition with unintentional weight loss: Patient reported C- scope 3 years ago showing preCA polyps. Advised repeat C-scope especially given recent weight loss and risk factors such as celiac disease + pernicious anemia. Ensure TID. GERD: Pepcid 20 mg PO QD + Protonix 40 mg PO QD. History of A-Fib CODE STATUS: FULL CODE DVT Prophylaxis: Hep SQ GI Prophylaxis: Protonix + Pepcid Designated medical POA if patient is not able to make medical decisions for themselves: I have reviewed the following rural health consultant notes: I have reviewed the results of the following tests: Echo. UCx. I have ordered the following tests: CBC and BMP in the AM. I have discussed the care of this patient with the following independent historian: JOSE. I have independently interpreted the following test below: I have discussed the management of this patient with the following physician: Objective - Vital Signs Vital signs: Vital Signs Temp 98.0 F 11/14/24 07:20 Pulse 0 L 11/14/24 09:13 Resp 18 11/14/24 09:13 BP 97/60 11/14/24 07:20 Pulse Ox 96 11/14/24 07:20 FiO2 Intake & Output 11/13/24 11/14/24 11/14/24 18:59 06:59 18:59 Intake Total 480 Balance 480 Intake: Oral 480 Other: Voiding Method Toilet Toilet # Voids 2 3 # Bowel Movements 1 - Labs CBC & Chem 7: 11/12/24 17:30 11/12/24 17:33 Labs: Microbiology - Last 24 Hours (Table) 11/12/24 17:14 Urine Culture - Preliminary Urine,Voided Gram Neg Bacilli
[2024-11-14] MEDS: predniSONE 20 MG TAB PO SCH (11:16)
[2024-11-15 04:14] LABS: HCT 31.9 % (37.2-46.3); HGB 10.6 g/dL (12.0-15.0); MCH 29.8 pg (27.0-32.0); MCHC 33.2 g/dL (32.0-37.0); MCV 89.6 fL (80.0-97.0); Platelet Count 205 10*3/uL (140-440); RBC 3.56 10*6/uL (4.10-5.20); RDW 14.0 % (11.5-14.5); WBC 5.34 10*3/uL (4.50-10.00)
[2024-11-15 04:36] LABS: African American GFR (CKD) >90 (>60 ml/min/1.73 sqM); Anion Gap 7 mmol/L; Blood Urea Nitrogen 21 mg/dL (7-17); Calcium 8.0 mg/dL (8.4-10.2); Carbon Dioxide 23 mmol/L (22-30); Chloride 106 mmol/L (98-107); Glucose 88 mg/dL (74-99); Non-African American GFR(CKD) >90 (>60 ml/min/1.73 sqM); Potassium 5.0 mmol/L (3.5-5.1); Sodium 136 mmol/L (137-145)
--- NOTE | 2024-11-15 11:28 | P.PN ---
Subjective Progress Note Date: 11/15/24 74 year old F with PMH RA, celiac disease, pernicious anemia presents to the ED after feeling dizzy and losing her footing on the stairs. She reports progressive weight loss over the past 2 years due to poor appetite. Previously has C-scope (but reports being overdo for one - follows GI at [facility]) showing pre cancerous polpys. Reports positional lightheadedness. Reports had a CT head done at outside hospital which was patient reported negative. In the ED she underwent extensive evaluation. BP 120/76, HR 74, T 99.4F, RR 18, 99% on RA. Labs significant for Hct 36.6, Cl 110, Cr 0.48, Ca 8.3, Mag 2, Lactic acid 1, Trop < 0.012, alb 3.3. UA + nitrite. CXR neg. EKG NSR with first degree AV block. Started on Rocephin and admitted for further workup and management. 11/13 Patient was seen and examined. Reports pain "all over". Pain is 10/10 severity. No new labs done this morning. 11/14 Patient was seen and examined. Patient reports arthritic pain in all of her joints. Pain is 10/10 severity slightly relieved with Morphine. Orthostats yesterday was negative. Echo shows EF 50-55%. UCx growing GNB. Agreeable for SNF. No new labs done today. 11/15 Patient was seen and examined. Arthritic pain improved since starting Prednisone yesterday. UCx growing GNB. Agreeable for SNF. CBC and BMP significant for RBC 4.56, Hg 10.6, Hct 31.9, Na 136, BUN 21, Cr 0.5, Ca 8. General: no distress, appears at stated age Derm: warm, dry Head: atraumatic, normocephalic, symmetric, bruising over the forehead Eyes: EOMI Mouth: no lip lesion, mucus membranes moist Cardiovascular: S1 S2 reg. No murmur. Lungs: Decreased BS bilaterally, no accessory muscle use Ext: no gross muscle atrophy, no edema, no contractures Neuro: No FND Psych: AO x 3 Based on my assessment of this patient, this patient meets a high complexity level of care. UTI: Continue Rocephin 2g IV QD. Follow UCx. RA flare: Hydroxychloroquine 200 mg PO QD. Start Prednisone 20 mg PO QD and taper. [place] 10 QID PRN. Morphine 4 mg IV Q6H PRN. Positional lightheadedness weight fall and head trauma: Outside hospital CT head negative per patient. Orthostats negative. Echo as above. Telemetry monitoring for one day. Fall precautions. PT and OT consulted. Patient agreeable for SNF. Protein calorie malnutrition with unintentional weight loss: Patient reported C- scope 3 years ago showing preCA polyps. Advised repeat C-scope especially given recent weight loss and risk factors such as celiac disease + pernicious anemia. Ensure TID. GERD: Pepcid 20 mg PO QD + Protonix 40 mg PO QD. History of A-Fib CODE STATUS: FULL CODE DVT Prophylaxis: Hep SQ GI Prophylaxis: Protonix + Pepcid Designated medical POA if patient is not able to make medical decisions for themselves: I have reviewed the following implementation consultant notes: I have reviewed the results of the following tests: CBC, BMP. UCx. I have ordered the following tests: I have discussed the care of this patient with the following independent historian: I have independently interpreted the following test below: I have discussed the management of this patient with the following physician: Objective - Vital Signs Vital signs: Vital Signs Temp 97.7 F 11/15/24 06:49 Pulse 67 11/15/24 08:25 Resp 18 11/15/24 08:25 BP 120/70 11/15/24 06:49 Pulse Ox 94 L 11/15/24 06:49 FiO2 Intake & Output 11/14/24 11/15/24 11/15/24 18:59 06:59 18:59 Other: Voiding Method Toilet Toilet Toilet Bedside Commode Bedside Commode # Voids 5 3 # Bowel Movements 1 - Labs CBC & Chem 7: 11/15/24 03:58 11/15/24 03:58 Labs: Abnormal Lab Results - Last 24 Hours (Table) 11/15/24 11/15/24 Range/Units 03:58 03:58 RBC 3.56 L (4.10-5.20) 10*6/uL Hgb 10.6 L (12.0-15.0) g/dL Hct 31.9 L (37.2-46.3) % MPV 9.2 L (9.5-12.2) fL Sodium 136 L (137-145) mmol/L BUN 21 H (7-17) mg/dL Creatinine 0.50 L (0.52-1.04) mg/dL Calcium 8.0 L (8.4-10.2) mg/dL Microbiology - Last 24 Hours (Table) 11/12/24 17:14 Urine Culture - Preliminary Urine,Voided Gram Neg Bacilli
[2024-11-16 07:36] VITALS: RESP 17
--- NOTE | 2024-11-16 11:31 | P.DS ---
Providers Date of admission: 11/12/24 21:49 Expected date of discharge: 11/16/24 Attending physician: Katie Pryor MD Primary care physician: Adele Morris DO Hospital Course: 74 year old F with PMH RA, celiac disease, pernicious anemia presents to the ED after feeling dizzy and losing her footing on the stairs. She reports progressive weight loss over the past 2 years due to poor appetite. Previously has C-scope (but reports being overdo for one - follows GI at [facility]) showing pre cancerous polpys. Reports positional lightheadedness. Reports had a CT head done at outside hospital which was patient reported negative. In the ED she underwent extensive evaluation. BP 120/76, HR 74, T 99.4F, RR 18, 99% on RA. Labs significant for Hct 36.6, Cl 110, Cr 0.48, Ca 8.3, Mag 2, Lactic acid 1, Trop < 0.012, alb 3.3. UA + nitrite. CXR neg. EKG NSR with first degree AV block. Started on Rocephin and admitted for further workup and management. Orthostats were negative. Echo showed EF 50-55%. UCx grew E. coli. Also started on Prednis one taper for RA flare. 11/16 Patient was seen and examined. She reports improving arthritic pain. UCx growing E. coli. Agreeable for SNF. Plans for SNF today. Discharge Plan: Augmentin x 4 days (total 7 days antibiotics). Note to PCP: Advised repeat C-scope especially given recent weight loss and risk factors such as celiac disease + pernicious anemia. Prednisone taper: 20 mg PO QD x 7 days, 15 mg PO QD x 7 days, 10 mg PO QD x 7 days 7.5 mg PO QD x 7 days, 5 mg PO QD x 7 days, 2.5 mg PO QD x 7 days. General: no distress, appears at stated age Derm: warm, dry Head: atraumatic, normocephalic, symmetric, bruising over the forehead Eyes: EOMI Mouth: no lip lesion, mucus membranes moist Cardiovascular: S1 S2 reg. No murmur. Lungs: Decreased BS bilaterally, no accessory muscle use Ext: no gross muscle atrophy, no edema, no contractures Neuro: No FND Psych: AO x 3 Discharge Diagnosis: UTI RA flare Positional lightheadedness weight fall and head trauma Protein calorie malnutrition with unintentional weight loss GERD History of A-Fib This complex discharge took 35 minutes to complete. Patient Condition at Discharge: Stable Plan - Discharge Summary Discharge Rx Participant: No New Discharge Prescriptions: New predniSONE [Deltasone] See Taper PO DAILY tab Amoxic-Pot Clav 875-125Mg [Augmentin 875-125] 1 tab PO Q12HR 4 Days #8 tablet polyethylene glycoL 3350 [Miralax] 17 gm PO DAILY PRN packet PRN Reason: Constipation Continue Ferrous Sulfate [Iron (65 MG Elemental)] 325 mg PO DAILY Cyanocobalamin (Vitamin B-12) [Vitamin B-12] 1,000 mcg PO DAILY Pantoprazole [Protonix] 40 mg PO DAILY Lidocaine-Prilocaine Cream [Emla Cream 2.5%/2.5%] 1 applic TOPICAL TID PRN PRN Reason: Pain HYDROcodone/APAP 10-325MG [[place] 10-325] 1 tab PO QID #12 tab Multivitamins, Thera [Multivitamin (formulary)] 1 tab PO DAILY Melatonin 9 mg PO HS Folic Acid 1 mg PO DAILY Ascorbic Acid [Vitamin C] 500 mg PO DAILY Acetaminophen [Tylenol] 975 mg PO Q8H PRN PRN Reason: Pain QUEtiapine [SEROquel] 200 mg PO HS Hydroxychloroquine Sulfate [Plaquenil] 200 mg PO DAILY Ergocalciferol (Vitamin D2) [Drisdol (GEQ) 1,250 MCG (50,000 IU)] 1,250 mcg PO TUFR Zolpidem [Ambien] 5 mg PO HS PRN #3 tab PRN Reason: Insomnia Discontinued oxyCODONE HCL [oxyCODONE HCL (IR)] 5 mg PO TID PRN PRN Reason: Pain Discharge Medication List Acetaminophen [Tylenol] 975 mg PO Q8H PRN 11/12/24 [History] Ascorbic Acid [Vitamin C] 500 mg PO DAILY 11/12/24 [History] Cyanocobalamin (Vitamin B-12) [Vitamin B-12] 1,000 mcg PO DAILY 11/12/24 [History] Ergocalciferol (Vitamin D2) [Drisdol (GEQ) 1,250 MCG (50,000 IU)] 1,250 mcg PO TUFR 11/12/24 [History] Ferrous Sulfate [Iron (65 MG Elemental)] 325 mg PO DAILY 11/12/24 [History] Folic Acid 1 mg PO DAILY 11/12/24 [History] Hydroxychloroquine Sulfate [Plaquenil] 200 mg PO DAILY 11/12/24 [History] Lidocaine-Prilocaine Cream [Emla Cream 2.5%/2.5%] 1 applic TOPICAL TID PRN 11/12/24 [History] Melatonin 9 mg PO HS 11/12/24 [History] Multivitamins, Thera [Multivitamin (formulary)] 1 tab PO DAILY 11/12/24 [History] Pantoprazole [Protonix] 40 mg PO DAILY 11/12/24 [History] QUEtiapine [SEROquel] 200 mg PO HS 11/12/24 [History] Amoxic-Pot Clav 875-125Mg [Augmentin 875-125] 1 tab PO Q12HR 4 Days #8 tablet 11/16/24 [Rx] HYDROcodone/APAP 10-325MG [[place] 10-325] 1 tab PO QID #12 tab 11/16/24 [Rx] Zolpidem [Ambien] 5 mg PO HS PRN #3 tab 11/16/24 [Rx] polyethylene glycoL 3350 [Miralax] 17 gm PO DAILY PRN packet 11/16/24 [Rx] predniSONE [Deltasone] See Taper PO DAILY tab 11/16/24 [Rx] Follow up Appointment(s)/Referral(s): Adele Morris DO [Primary Care Provider] - 1 Week (patient is going to rehab) Activity/Diet/Wound Care/Special Instructions: Note to PCP: Advised repeat C-scope especially given recent weight loss and risk factors such as celiac disease + pernicious anemia. Prednisone taper: 20 mg PO QD x 7 days, 15 mg PO QD x 7 days, 10 mg PO QD x 7 days 7.5 mg PO QD x 7 days, 5 mg PO QD x 7 days, 2.5 mg PO QD x 7 days. Discharge Disposition: TRANSFER TO SNF/ECF
[2024-11-16 13:47] VITALS: BP 115/71; PULSE 70; TEMP 98.2
== END 2024-11-16 16:16 | DRG 689 ==
LOC: EC 16:41 → 4SSUR 21:49
PROVIDERS: ADMIT Internal Medicine; ATTEND Internal Medicine
DX: N39.0 Urinary tract infection, site not specified (principal); E43 Unspecified severe protein-calorie malnutrition; R64 Cachexia; E86.0 Dehydration; I48.91 Unspecified atrial fibrillation; B96.20 Unspecified Escherichia coli [E. coli] as the cause of diseases classified elsewhere; M06.9 Rheumatoid arthritis, unspecified; I44.0 Atrioventricular block, first degree; K21.9 Gastro-esophageal reflux disease without esophagitis; Z96.653 Presence of artificial knee joint, bilateral; R29.6 Repeated falls; S00.83XA Contusion of other part of head, initial encounter; W19.XXXA Unspecified fall, initial encounter; Z87.891 Personal history of nicotine dependence; Z68.21 Body mass index [BMI] 21.0-21.9, adult
CPT/HCPCS: 36415; 71046; 80048; 80053; 81001; 83605; 83735; 84484; 85025; 85027; 85610; 85730; 87077; 87086; 87186; 93005; 93306; 96361; 96374; 99285